=== PATIENT | male | born 1975 | race Native Hawaiian/Other Pacific Islander ===

== ENCOUNTER 2021-09-18 12:45 | Emergency (ER) | payer BC ==
[~2021-09-18] VITALS: Ht 162.6 cm; Wt 68.0 kg
--- NOTE | 2021-09-18 12:45 | NUR ---
BIBS C/O NAUSEA AND VOMITING SINCE LAST NIGHT, "I WENT TO [place] AND DID A LOT OF SUZE." VITALS ARE WITHIN NORMAL LIMITS. AWAITING MD ABAD.
[2021-09-18] MEDS ORDERED: LIDOCAINE VISCOUS 2% UD 15 ML UDC ONE (13:27)
[2021-09-18] MEDS ORDERED: ONDANSETRON HCL/PF 4 MG/2 ML VIAL ONE (13:27)
[2021-09-18] MEDS ORDERED: MAG HYDROX/AL HYDROX/SIMETH 30 ML UDC ONE (13:27)
[2021-09-18] MEDS ORDERED: FAMOTIDINE/PF INJ 20 MG/2 ML VIAL IV ONE ×2 (13:28→13:30)
[2021-09-18] MEDS ORDERED: ONDANSETRON HCL/PF 4 MG/2 ML VIAL IVP ONE (13:30)
[2021-09-18] MEDS ORDERED: IV NS 0.9% 1,000 ML BAG IV ONE (13:30)
[2021-09-18] MEDS ORDERED: MAG HYDROX/AL HYDROX/SIMETH 30 ML UDC PO ONE (13:30)
[2021-09-18] MEDS ORDERED: LIDOCAINE VISCOUS 2% UD 15 ML UDC MM ONE (13:30)
[2021-09-18] MEDS ORDERED: ONDA4TAB5 PO (14:29)
[2021-09-18] MEDS ORDERED: FAMO-131 PO (14:29)
--- NOTE | 2021-09-18 14:37 | NUR ---
Patient discharged to home in stable condition. Written and verbal after care instructions given. Patient verbalizes understanding of instruction.IV removed. Catheter intact and site benign. Pressure and 4x4 applied to site. No bleeding noted.
[2021-09-18 14:39] VITALS: BP 118/81
== END 2021-09-18 14:39 | disposition home or self-care (01) ==
LOC: ER 12:49
DX: R10.13 Epigastric pain (principal); R11.2 Nausea with vomiting, unspecified; F16.10 Hallucinogen abuse, uncomplicated; F10.10 Alcohol abuse, uncomplicated; E78.5 Hyperlipidemia, unspecified; M10.9 Gout, unspecified; F98.8 Other specified behavioral and emotional disorders with onset usually occurring in childhood and adolescence; Y90.9 Presence of alcohol in blood, level not specified
CPT/HCPCS: 99284; 96374; 96361; 96375; 93005; J3490; J2405; J7030

== ENCOUNTER 2023-01-02 23:28 | Emergency (ER) | payer BC ==
[~2023-01-02] VITALS: Ht 172.7 cm; Wt 79.4 kg
[~2023-01-02 23:28] MED LIST: FAMO-131 PO; ONDA4TAB5 PO
[2023-01-03 00:52] LABS: CALCIUM, SERUM 8.7 mg/dL (8.5-10.1); CARBON DIOXIDE 27 mmol/L (21-32); CHLORIDE 101 mmol/L (98-107); CREATININE 1.2 mg/dL (0.6-1.3); GLUCOSE 125 mg/dL (74-106); POTASSIUM 3.6 mmol/L (3.5-5.1); SODIUM SERUM 136 mmol/L (136-145); UREA NITROGEN, BLOOD 15 mg/dL (7-18)
[2023-01-03 00:53] LABS: BASOPHILS % (AUTO) 0.4 % (0.0-2.0); EOSINOPHILS # (AUTO) 0.1 K/uL (0.0-0.7); EOSINOPHILS % (AUTO) 1.2 % (0.0-6.0); HEMATOCRIT 39 % (39-51); LYMPHOCYTES # (AUTO) 1.4 K/uL (0.8-4.8); LYMPHOCYTES % (AUTO) 18.2 % (20.0-44.0); MEAN CORPUSCULAR HEMOGLOBIN 30 PG (26.0-33.0); MEAN CORPUSCULAR HGB CONC 33 g/dl (31.0-36.0); MEAN CORPUSCULAR VOLUME 91 fL (80-96); MONOCYTES # (AUTO) 0.7 K/uL (0.1-1.30); MONOCYTES % (AUTO) 9.2 % (2.0-12.0); NEUTROPHILS # (AUTO) 5.3 K/uL (1.8-8.9); PLATELET COUNT (AUTO) 315 K/uL (150-450); RED BLOOD CELL COUNT(AUTO) 4.34 MIL/uL (4.5-6.0); RED CELL DISTRIBUTION WIDTH 13.1 % (11.5-15.0); WHITE BLOOD COUNT (AUTO) 7.5 K/uL (4.3-11.0)
[2023-01-03] MEDS ORDERED: MORPHINE SULFATE INJ 4 MG/ML DISP.SYRIN ONE (00:55)
[2023-01-03] MEDS: MORPHINE SULFATE INJ 2 MG/ML DISP.SYRIN IV ONE (01:00)
[2023-01-03] MEDS: IV NS 0.9% 1,000 ML BAG IV ONE (01:00)
[2023-01-03] MEDS ORDERED: IBUP-1955 PO (03:15)
[2023-01-03] MEDS ORDERED: COLC0.6C3 PO (03:15)
[2023-01-03 03:32] VITALS: BP 126/83; TEMP 98.8; O2SAT 100
== END 2023-01-03 03:32 | disposition home or self-care (01) ==
LOC: ER 23:30
DX: I31.9 Disease of pericardium, unspecified (principal)
CPT/HCPCS: 36415; 71045-TC; 80048-TC; 84484-TC; 85025-TC; 85378-TC; J2270; J7030

== ENCOUNTER 2023-08-23 13:26 | Emergency (ER) | payer BC ==
[~2023-08-23] VITALS: Ht 172.7 cm; Wt 81.6 kg
[~2023-08-23 13:26] MED LIST changes: +COLC0.6C3 PO; +IBUP-1955 PO
[2023-08-23 13:35] VITALS: BP 132/107; TEMP 98.2; O2SAT 98
== END 2023-08-23 14:20 | disposition left against medical advice (07) ==
LOC: ER 13:36
DX: R00.2 Palpitations (principal); F60.0 Paranoid personality disorder; F19.10 Other psychoactive substance abuse, uncomplicated; Z79.1 Long term (current) use of non-steroidal anti-inflammatories (NSAID); Z79.899 Other long term (current) drug therapy